=== PATIENT | female | born 1940 | race Caucasian/White ===

== ENCOUNTER 2024-04-30 11:02 | Emergency (ER) | payer MEDICARE, OTHER ==
[~2024-04-30] VITALS: Ht 157.5 cm; Wt 52.2 kg
[~2024-04-30 11:02] MED LIST: ALEN5TAB PO; ASPI-605; Keppra; Lipitor; Vitamins; [UNRECOGNIZED DRUG - OTHER]
[2024-04-30 11:14] VITALS: BP 154/83; TEMP 98; O2SAT 98
[2024-04-30] MEDS ORDERED: IBUP-1953 PO (13:09)
== END 2024-04-30 13:29 | disposition home or self-care (01) ==
LOC: ER 11:22
DX: S52.024A Nondisplaced fracture of olecranon process without intraarticular extension of right ulna, initial encounter for closed fracture (principal); F32.A Depression, unspecified; Z86.69 Personal history of other diseases of the nervous system and sense organs; Z85.3 Personal history of malignant neoplasm of breast; W01.0XXA Fall on same level from slipping, tripping and stumbling without subsequent striking against object, initial encounter; Y93.89 Activity, other specified; Y92.89 Other specified places as the place of occurrence of the external cause; Y99.8 Other external cause status
CPT/HCPCS: 73080-TC; 73564-TC